=== PATIENT | male | born 1960 | race Caucasian/White ===

== ENCOUNTER → 2018-11-09 | Outpatient (CLI) | payer BC ==
[~2018-11-09] MED LIST: ACETAMINOPHEN325 M1 PO; ASPIRIN325 PO; CIPROFLOXACIN500 M1 PO; CIPROFLOXACIN500 M3 PO; FLAGYL500 MG PO; FLOMAX PO; HYDROCODON-ACE1 EACH PO; MOBIC7.5 MG PO; NORCO 5-325 TA1 EACH PO; PERCOCET 5-3251 EACH PO; PHENERGAN25 MG RE; PREDNISONE 20 M20 MG PO; TAMSULOSIN HCL0.4 MG PO; ZOFRAN ODT4 MG PO
== END ==
LOC: RAD 14:03
DX: M41.84 Other forms of scoliosis, thoracic region (principal); M51.34 Other intervertebral disc degeneration, thoracic region

== ENCOUNTER → 2019-05-30 | Outpatient (CLI) | payer OTHER | LOC: SJCVCIMAG 13:25 | DX: I10 Essential (primary) hypertension (principal); E78.5 Hyperlipidemia, unspecified ==

== ENCOUNTER → 2019-09-05 | Outpatient (CLI) | payer OTHER | LOC: LAB 10:39 | PROVIDERS: ATTEND Neuromusculoskeletal Medicine & OMM | DX: R06.02 Shortness of breath (principal); R05 Cough; R51 Headache; J02.9 Acute pharyngitis, unspecified; Z20.828 Contact with and (suspected) exposure to other viral communicable diseases ==

== ENCOUNTER → 2020-02-20 | Outpatient (CLI) | payer OTHER | LOC: LAB 14:57 | PROVIDERS: ATTEND Neuromusculoskeletal Medicine & OMM | DX: Z20.828 Contact with and (suspected) exposure to other viral communicable diseases (principal) ==

== ENCOUNTER → 2020-03-06 | Outpatient (CLI) | payer OTHER | LOC: LAB 11:54 | PROVIDERS: ATTEND Nurse Practitioner | DX: U07.1 COVID-19 (principal) ==

== ENCOUNTER → 2020-11-19 | Outpatient (CLI) | payer OTHER | LOC: SJCVCIMAG 14:03 | PROVIDERS: ATTEND Internal Medicine Cardiovascular Disease | DX: I65.23 Occlusion and stenosis of bilateral carotid arteries (principal) ==

== ENCOUNTER → 2020-11-26 | Outpatient (CLI) | payer OTHER | LOC: CAT 13:54 | PROVIDERS: ATTEND Nurse Practitioner | DX: R42 Dizziness and giddiness (principal); H53.9 Unspecified visual disturbance ==